=== PATIENT | female | born 1960 | race Caucasian/White ===

== ENCOUNTER 2023-11-12 09:34 | Outpatient (CLI) | payer OTHER | END 2023-11-12 09:39 | disposition home or self-care (01) | LOC: SONOGRAMA 09:34 | PROVIDERS: ATTEND General Practice | DX: M25.512 Pain in left shoulder (principal) ==

== ENCOUNTER 2023-12-28 10:20 | Outpatient (CLI) | payer OTHER | END 2023-12-28 10:24 | disposition home or self-care (01) | LOC: MRI 10:20 | PROVIDERS: ATTEND Specialist | DX: M75.112 Incomplete rotator cuff tear or rupture of left shoulder, not specified as traumatic (principal); M25.412 Effusion, left shoulder; M24.512 Contracture, left shoulder | CPT/HCPCS: 73221 ==